=== PATIENT | male | born 1965 | race African-American/Black ===

== ENCOUNTER 2018-10-25 08:33 | Inpatient (IN) | payer BC ==
[2018-10-25 08:51] VITALS: BMI 27.1
--- NOTE | 2018-10-25 10:02 | HP ---
CIWA Score Nausea/Vomitin Muscle Tremors: 2 Anxiety: 2 Agitation: 2 Paroxysmal Sweats: 1-Minimal Palms Moist Orientation: 0-Oriented Tacttile Disturbances: 1-Very Mild Itch/Numbness Auditory Disturbances: 1-Very Mild Visual Disturbances: 0-None Headache: 2-Mild CIWA-Ar Total Score: 13 - Admission Criteria [facility]ASAS Guidelines: Admission for Medically Managed Detox: Requires at least one of the followin. CIWA greater than 12 2. Seizures within the past 24 hours 3. Delirium tremens within the past 24 hours 4. Hallucinations within the past 24 hours 5. Acute intervention needed for co occurring medical disorder 6. Acute intervention needed for co occurring psychiatric disorder 7. Severe withdrawal that cannot be handled at a lower level of care (continued vomiting, continued diarrhea, abnormal vital signs) requiring intravenous medication and/or fluids 8. Admission ROS BHS - HPI Chief Complaint: i need help to stop drinking alcohol and cocaine Allergies/Adverse Reactions: Allergies Allergy/AdvReac Type Severity Reaction Status Date / Time No Known Allergies Allergy Verified 10/25/18 08:45 History of Present Illness: this 53 years old male with alcohol and cocaine dependence,seeking detox, withdrawal symptom, last detox 2008 did not recall facility,not completed nicotine dependence 5 cigarette/day,requested 7 mgs patch plan for rehab after detox longest sobriety 3 years Exam Limitations: No Limitations - Ebola screening Have you traveled outside of the country in the last 21 days: No Have you had contact with anyone from an Ebola affected area: No - Review of Systems Constitutional: Loss of Appetite, Malaise, Night Sweats, Changes in sleep, Weakness EENT: reports: Nose Congestion Respiratory: reports: No Symptoms reported Cardiac: reports: No Symptoms Reported GI: reports: Nausea, Poor Appetite, Poor Fluid Intake : reports: No Symptoms Reported Musculoskeletal: reports: Back Pain, Muscle Pain Integumentary: reports: Dryness Endocrine: reports: No Symptoms Reported Hematology: reports: No Symptoms Reported Psychiatric: reports: No Sypmtoms Reported, Judgement Intact, Mood/Affect Appropiate, Orientated x3 Other Systems: Reviewed and Negative Patient History - Patient Medical History Hx Anemia: No Hx Asthma: No Hx Chronic Obstructive Pulmonary Disease (COPD): No Hx Cancer: No Hx Cardiac Disorders: No Hx Congestive Heart Failure: No Hx Hypertension: No Hx Hypercholesterolemia: No Hx Pacemaker: No HX Cerebrovascular Accident: No Hx Seizures: No Hx Dementia: No Hx Diabetes: No Hx Gastrointestinal Disorders: No Hx Liver Disease: No Hx Genitourinary Disorders: No Hx Sexually Transmitted Disorders: No Hx Renal Disease (ESRD): No Hx Thyroid Disease: No Hx Human Immunodeficiency Virus (HIV): No (last 04/02 negative) Hx Hepatitis C: No Hx Depression: No Hx Suicide Attempt: No Hx Bipolar Disorder: No Hx Schizophrenia: No Other Medical History: no suicidal,no homicidal - Patient Surgical History Past Surgical History: No - PPD History Previous Implant?: Yes Documented Results: Positive w/o proof Implanted On Prior [facility] Admission?: No PPD to be Administered?: No - Smoking Cessation Smoking history: Current every day smoker Have you smoked in the past 12 months: Yes Aproximately how many cigarettes per day: 5 Cigars Per Day: 0 Hx Chewing Tobacco Use: No Initiated information on smoking cessation: Yes 'Breaking Loose' booklet given: 10/25/18 - Substance & Tx. History Hx Alcohol Use: Yes Hx Substance Use: Yes Substance Use Type: Alcohol, Cocaine Hx Substance Use Treatment: Yes (2008 unknown facity not completd) - Substances abused Alcohol Substance route: Oral Frequency: Daily Amount used: 2 pt. vodka Age of first use: 17 Date of last use: 10/25/18 Cocaine Substance route: Smoking Frequency: 3-6 times per week Amount used: 1 gram Age of first use: 18 Date of last use: 10/25/18 Family Disease History - Family Disease History Family Disease History: Other: Father (no contact) Admission Physical Exam BHS - Vital Signs Vital Signs: Vital Signs - 24 hr 10/25/18 08:45 Temperature 98 F Pulse Rate 85 Respiratory 18 Rate Blood Pressure 154/84 - Physical General Appearance: Yes: Moderate Distress, Tremorous, Irritable, Anxious HEENTM: Yes: Normal ENT Inspection, EDUAR, Pharynx Normal Respiratory: Yes: Lungs Clear, Normal Breath Sounds, No Respiratory Distress Neck: Yes: Within Normal Limits, Supple, Trachea in good position Breast: Yes: Within Normal Limits Cardiology: Yes: Within Normal Limits, Regular Rhythm, Regular Rate, S1, S2 Abdominal: Yes: Within Normal Limits, Normal Bowel Sounds, Non Tender, Flat Genitourinary: Yes: Within Normal Limits Back: Yes: Muscle Spasm Musculoskeletal: Yes: full range of Motion, Back pain, Muscle Pain Extremities: Yes: Tremors 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, Fully Oriented, Alert, Motor Strength 5/5 Integumentary: Yes: Dry Lymphatic: Yes: Within Normal Limits - Diagnostic (1) Alcohol dependence with uncomplicated withdrawal Current Visit: Yes Status: Acute (2) Nicotine dependence Current Visit: Yes Status: Acute (3) Cocaine dependence Current Visit: Yes Status: Acute (4) Dehydration Current Visit: Yes Status: Acute Cleared for Admission S - Detox or Rehab [facility] Level of Care: Medically Managed Detox Regimen/Protocol: Librium Breathalyzer - Breathalyzer Breathalyzer: 0.035 Urine Drug Screen - Test Device Lot number: [id number] Expiration date: 06/14/20 - Control Is test valid?: Yes - Results Drug screen NEGATIVE: No Urine drug screen results: [facility]IN-Cocaine Inpatient Rehab Admission - Rehab Decision to Admit Inpatient rehab admission?: No
[2018-10-25] MEDS ORDERED: ACETAMINOPHEN 325 MG TABLET (FP) PO PRN ×2 (10:13)
[2018-10-25] MEDS ORDERED: MAGNESIUM CITRATE 300 ML BOTTLE PO PRN (10:13)
[2018-10-25] MEDS ORDERED: MAGNESIUM HYDROX 2400MG/30ML ORAL SUSPENSION 30 ML CUP PO PRN (10:13)
[2018-10-25] MEDS ORDERED: BISMUTH SUBSALICYLATE 262 MG/15 ML BTL PO PRN (10:13)
[2018-10-25] MEDS ORDERED: IBUPROFEN 400 MG TABLET (FP) PO PRN (10:13)
[2018-10-25] MEDS ORDERED: METHOCARBAMOL 500 MG TABLET PO PRN (10:13)
[2018-10-25] MEDS ORDERED: chlordiazePOXIDE HCL 25 MG CAPSULE PO PRN (10:13)
[2018-10-25] MEDS ORDERED: MENTHOL/PHENOL 1 EACH UD MM PRN (10:13)
[2018-10-25] MEDS ORDERED: MAG HYDROX/AL HYDROX/SIMETH 30 ML UNIT-DOSE CUP PO PRN (10:13)
[2018-10-25] MEDS: NICOTINE 7 MG/24 HOURS TOPICAL PATCH TD SCH (11:49)
--- NOTE | 2018-10-25 13:44 | EKG ---
Test Reason : Blood Pressure : / mmHG Vent. Rate : 074 BPM Atrial Rate : 074 BPM P-R Int : 166 ms QRS Dur : 084 ms QT Int : 394 ms P-R-T Axes : 072 071 072 degrees QTc Int : 437 ms NORMAL SINUS RHYTHM NORMAL ECG NO PREVIOUS ECGS AVAILABLE Confirmed by ALEXANDRE QUESADA, OLY ([id number]) on 10/25/2018 1:44:23 PM Referred By: Confirmed By:OLY SCHROEDER MD
[2018-10-25 14:04] LABS: HEMATOCRIT 43.5 % (35.4-49); HEMOGLOBIN 14.2 GM/dL (11.7-16.9); MCH 27.9 pg (25.7-33.7); MCHC 32.6 g/dl (32.0-35.9); MEAN CELL VOLUME 85.7 fl (80-96); MEAN PLT VOLUME 8.4 fl (7.5-11.1); PLATELET COUNT 305 K/MM3 (134-434); RBC 5.07 M/mm3 (4.00-5.60); RDW 13.6 % (11.9-15.9); WHITE BLOOD COUNT 7.8 K/mm3 (4.0-10.0)
[2018-10-25 14:16] LABS: ALBUMIN 3.7 g/dl (3.4-5.0); ALK PHOS 72 U/L (45-117); ANION GAP 7 MMOL/L (8-16); BILIRUBIN,TOTAL 0.2 mg/dL (0.2-1); BLOOD UREA NITROGEN 15 mg/dL (7-18); CALCIUM 8.6 mg/dL (8.5-10.1); CHLORIDE 107 mmol/L (98-107); CO2 24 mmol/L (21-32); CREATININE 0.9 mg/dL (0.55-1.3); GLUCOSE,RANDOM 91 mg/dL (74-106); POTASSIUM 3.9 mmol/L (3.5-5.1); SGOT/AST 12 U/L (15-37); SGPT/ALT 19 U/L (13-61); SODIUM 138 mmol/L (136-145); TOT PROT 7.2 g/dl (6.4-8.2)
[2018-10-25 14:39] LABS: SICKLE CELL SCREEN NEGATIVE (NEGATIVE)
[2018-10-25] MEDS: chlordiazePOXIDE HCL 25 MG CAPSULE PO SCH ×2 (17:23→22:10)
[2018-10-25] MEDS: THIAMINE HCL 100 MG TABLET (FP) PO SCH (22:10)
[2018-10-25] MEDS: MELATONIN 5 MG TABLETS PO PRN (22:11)
[2018-10-26] MEDS: chlordiazePOXIDE HCL 25 MG CAPSULE PO SCH ×4 (05:35→22:33)
[2018-10-26] MEDS: PRENATAL VITAMINS W/ FOLIC ACID TABLET (FP) PO SCH (10:18)
[2018-10-26] MEDS: NICOTINE 7 MG/24 HOURS TOPICAL PATCH TD SCH (10:18)
[2018-10-26] MEDS ORDERED: PNEUMOC 13-VAL CONJ-DIP CRM/PF 0.5 ML DISP.SYRIN IM ONE (12:00)
--- NOTE | 2018-10-26 14:29 | PN ---
S CIWA - CIWA Score Nausea/Vomitin Muscle Tremors: 3 Anxiety: 2 Agitation: 0-Normal Activity Paroxysmal Sweats: No Perspiration Orientation: 0-Oriented Tacttile Disturbances: 2-Mild Itch/Numbness/Burn Auditory Disturbances: 0-None Visual Disturbances: 1-Very Mild Sensitivity Headache: 3-Moderate CIWA-Ar Total Score: 14 BHS Progress Note (SOAP) Subjective: Anxious, Tremors, Nausea, H/A. Objective: PATIENT A & O X 3, OBSERVED AMBULATING ON UNIT. IN NO ACUTE DISTRESS. 10/26/18 14:27 Vital Signs Temperature 96.8 F L 10/26/18 09:37 Pulse Rate 67 10/26/18 09:37 Respiratory Rate 18 10/26/18 09:37 Blood Pressure 137/91 10/26/18 09:37 O2 Sat by Pulse Oximetry (%) Laboratory Tests 10/25/18 10/25/18 10/25/18 10:30 10:30 10:30 WBC 7.8 RBC 5.07 Hgb 14.2 Hct 43.5 MCV 85.7 MCH 27.9 MCHC 32.6 RDW 13.6 Plt Count 305 MPV 8.4 Sickle Cell Screen Negative Sodium 138 Potassium 3.9 Chloride 107 Carbon Dioxide 24 Anion Gap 7 L BUN 15 Creatinine 0.9 Creat Clearance w eGFR 88.61 Random Glucose 91 Calcium 8.6 Total Bilirubin 0.2 AST 12 L ALT 19 Alkaline Phosphatase 72 Total Protein 7.2 Albumin 3.7 RPR Titer Nonreactive HIV 1&2 Antibody Screen HIV P24 Antigen 10/25/18 10:30 WBC RBC Hgb Hct MCV MCH MCHC RDW Plt Count MPV Sickle Cell Screen Sodium Potassium Chloride Carbon Dioxide Anion Gap BUN Creatinine Creat Clearance w eGFR Random Glucose Calcium Total Bilirubin AST ALT Alkaline Phosphatase Total Protein Albumin RPR Titer HIV 1&2 Antibody Screen Negative HIV P24 Antigen Negative LABS NOTED. Assessment: 10/26/18 14:28 WITHDRAWAL SYMPTOMS. Plan: CONTINUE DETOX.
[2018-10-26] MEDS: THIAMINE HCL 100 MG TABLET (FP) PO SCH (22:33)
[2018-10-26] MEDS: MELATONIN 5 MG TABLETS PO PRN (22:34)
[2018-10-27] MEDS: chlordiazePOXIDE HCL 25 MG CAPSULE PO SCH ×2 (06:40→10:12)
[2018-10-27] MEDS: PRENATAL VITAMINS W/ FOLIC ACID TABLET (FP) PO SCH (10:12)
[2018-10-27] MEDS: NICOTINE 7 MG/24 HOURS TOPICAL PATCH TD SCH (12:03)
--- NOTE | 2018-10-27 14:50 | PN ---
[facility] CIWA - CIWA Score Nausea/Vomitin-No Nausea/No Vomiting Muscle Tremors: 2 Anxiety: 3 Agitation: 2 Paroxysmal Sweats: 1-Minimal Palms Moist Orientation: 0-Oriented Tacttile Disturbances: 0-None Auditory Disturbances: 0-None Visual Disturbances: 0-None Headache: 1-Very Mild CIWA-Ar Total Score: 9 S Progress Note (SOAP) Subjective: mild headache restlessness Objective: 10/27/18 14:50 Vital Signs Temperature 98.5 F 10/27/18 09:36 Pulse Rate 69 10/27/18 09:36 Respiratory Rate 18 10/27/18 09:36 Blood Pressure 154/90 10/27/18 09:36 O2 Sat by Pulse Oximetry (%) Laboratory Last Values WBC 7.8 K/mm3 (4.0-10.0) 10/25/18 10:30 RBC 5.07 M/mm3 (4.00-5.60) 10/25/18 10:30 Hgb 14.2 GM/dL (11.7-16.9) 10/25/18 10:30 Hct 43.5 % (35.4-49) 10/25/18 10:30 MCV 85.7 fl (80-96) 10/25/18 10:30 MCH 27.9 pg (25.7-33.7) 10/25/18 10:30 MCHC 32.6 g/dl (32.0-35.9) 10/25/18 10:30 RDW 13.6 % (11.9-15.9) 10/25/18 10:30 Plt Count 305 K/MM3 (134-434) 10/25/18 10:30 MPV 8.4 fl (7.5-11.1) 10/25/18 10:30 Sickle Cell Screen Negative (NEGATIVE) 10/25/18 10:30 Sodium 138 mmol/L (136-145) 10/25/18 10:30 Potassium 3.9 mmol/L (3.5-5.1) 10/25/18 10:30 Chloride 107 mmol/L (98-107) 10/25/18 10:30 Carbon Dioxide 24 mmol/L (21-32) 10/25/18 10:30 Anion Gap 7 MMOL/L (8-16) L 10/25/18 10:30 BUN 15 mg/dL (7-18) 10/25/18 10:30 Creatinine 0.9 mg/dL (0.55-1.3) 10/25/18 10:30 Creat Clearance w eGFR 88.61 (>60) 10/25/18 10:30 Random Glucose 91 mg/dL (74-106) 10/25/18 10:30 Calcium 8.6 mg/dL (8.5-10.1) 10/25/18 10:30 Total Bilirubin 0.2 mg/dL (0.2-1) 10/25/18 10:30 AST 12 U/L (15-37) L 10/25/18 10:30 ALT 19 U/L (13-61) 10/25/18 10:30 Alkaline Phosphatase 72 U/L (45-117) 10/25/18 10:30 Total Protein 7.2 g/dl (6.4-8.2) 10/25/18 10:30 Albumin 3.7 g/dl (3.4-5.0) 10/25/18 10:30 RPR Titer Nonreactive (NONREACTIVE) 10/25/18 10:30 HIV 1&2 Antibody Screen Negative 10/25/18 10:30 HIV P24 Antigen Negative 10/25/18 10:30 lab noted Assessment: 10/27/18 14:51 withdrawal sx Plan: continue detox
[2018-10-27] MEDS ORDERED: chlordiazePOXIDE HCL 10 MG CAPSULE PO PRN (17:00)
[2018-10-27] MEDS: chlordiazePOXIDE HCL 10 MG CAPSULE PO SCH ×2 (17:26→22:21)
[2018-10-27] MEDS: THIAMINE HCL 100 MG TABLET (FP) PO SCH (22:21)
[2018-10-27] MEDS: MELATONIN 5 MG TABLETS PO PRN (22:22)
[2018-10-27] MEDS: hydrOXYzine PAMOATE 25 MG CAPSULE (FP) PO PRN (22:24)
[2018-10-28] MEDS: chlordiazePOXIDE HCL 10 MG CAPSULE PO SCH ×3 (05:48→18:27)
[2018-10-28] MEDS: PRENATAL VITAMINS W/ FOLIC ACID TABLET (FP) PO SCH (10:20)
[2018-10-28] MEDS: NICOTINE 7 MG/24 HOURS TOPICAL PATCH TD SCH (10:21)
--- NOTE | 2018-10-28 13:32 | PN ---
S CIWA - CIWA Score Nausea/Vomitin-No Nausea/No Vomiting Muscle Tremors: 1-None Visible, but [place] Anxiety: 1-Mildly Anxious Agitation: 1-Slight > Activity Paroxysmal Sweats: 1-Minimal Palms Moist Orientation: 1-Uncertain about Date Tacttile Disturbances: 0-None Auditory Disturbances: 0-None Visual Disturbances: 0-None Headache: 2-Mild CIWA-Ar Total Score: 7 S Progress Note (SOAP) Subjective: drinking alcohol since age 15 having alcohol drinking problem since age 18 lives in [place] "bad" environment "drives" to drink more alcohol patient wants to go to 28 days inpatient rehab or brother 30 years sober [address] [facility] patient wants to go to [place] to see his elderly mother and father after rehab Objective: 10/28/18 13:39 Vital Signs Temperature 98.4 F 10/28/18 13:17 Pulse Rate 80 10/28/18 13:17 Respiratory Rate 18 10/28/18 13:17 Blood Pressure 161/99 10/28/18 13:17 O2 Sat by Pulse Oximetry (%) Laboratory Last Values WBC 7.8 K/mm3 (4.0-10.0) 10/25/18 10:30 RBC 5.07 M/mm3 (4.00-5.60) 10/25/18 10:30 Hgb 14.2 GM/dL (11.7-16.9) 10/25/18 10:30 Hct 43.5 % (35.4-49) 10/25/18 10:30 MCV 85.7 fl (80-96) 10/25/18 10:30 MCH 27.9 pg (25.7-33.7) 10/25/18 10:30 MCHC 32.6 g/dl (32.0-35.9) 10/25/18 10:30 RDW 13.6 % (11.9-15.9) 10/25/18 10:30 Plt Count 305 K/MM3 (134-434) 10/25/18 10:30 MPV 8.4 fl (7.5-11.1) 10/25/18 10:30 Sickle Cell Screen Negative (NEGATIVE) 10/25/18 10:30 Sodium 138 mmol/L (136-145) 10/25/18 10:30 Potassium 3.9 mmol/L (3.5-5.1) 10/25/18 10:30 Chloride 107 mmol/L (98-107) 10/25/18 10:30 Carbon Dioxide 24 mmol/L (21-32) 10/25/18 10:30 Anion Gap 7 MMOL/L (8-16) L 10/25/18 10:30 BUN 15 mg/dL (7-18) 10/25/18 10:30 Creatinine 0.9 mg/dL (0.55-1.3) 10/25/18 10:30 Creat Clearance w eGFR 88.61 (>60) 10/25/18 10:30 Random Glucose 91 mg/dL (74-106) 10/25/18 10:30 Calcium 8.6 mg/dL (8.5-10.1) 10/25/18 10:30 Total Bilirubin 0.2 mg/dL (0.2-1) 10/25/18 10:30 AST 12 U/L (15-37) L 10/25/18 10:30 ALT 19 U/L (13-61) 10/25/18 10:30 Alkaline Phosphatase 72 U/L (45-117) 10/25/18 10:30 Total Protein 7.2 g/dl (6.4-8.2) 10/25/18 10:30 Albumin 3.7 g/dl (3.4-5.0) 10/25/18 10:30 RPR Titer Nonreactive (NONREACTIVE) 10/25/18 10:30 HIV 1&2 Antibody Screen Negative 10/25/18 10:30 HIV P24 Antigen Negative 10/25/18 10:30 lab noted Assessment: 10/28/18 13:40 withdrawal sx Plan: continue detox
[2018-10-28] MEDS: amLODIPine BESYLATE 10 MG TABLET (FP) PO SCH (15:46)
[2018-10-28] MEDS: MELATONIN 5 MG TABLETS PO PRN (22:12)
[2018-10-28] MEDS: hydrOXYzine PAMOATE 25 MG CAPSULE (FP) PO PRN (22:12)
[2018-10-28] MEDS: THIAMINE HCL 100 MG TABLET (FP) PO SCH (22:12)
[2018-10-29] MEDS: chlordiazePOXIDE HCL 10 MG CAPSULE PO SCH (05:07)
[2018-10-29 09:01] VITALS: BP 153/87; PULSE 85; TEMP 96.7
[2018-10-29] MEDS: PRENATAL VITAMINS W/ FOLIC ACID TABLET (FP) PO SCH (10:17)
[2018-10-29] MEDS: amLODIPine BESYLATE 10 MG TABLET (FP) PO SCH (10:17)
[2018-10-29] MEDS: NICOTINE 7 MG/24 HOURS TOPICAL PATCH TD SCH (10:18)
--- NOTE | 2018-10-29 12:44 | DS ---
[facility] Detox Discharge Summary Admission Date: 10/25/18 Discharge Date: 10/29/18 - History Present History: Alcohol Dependence Additional Comments: 53 years old male admitted on 10/25/18 for alcohol withdrawal stabilization completed detox regimen [facility] - Physical Exam Results Vital Signs: Vital Signs Temperature 96.7 F L 10/29/18 09:01 Pulse Rate 85 10/29/18 09:01 Respiratory Rate 18 10/29/18 09:01 Blood Pressure 153/87 10/29/18 09:01 O2 Sat by Pulse Oximetry (%) Pertinent Admission Physical Exam Findings: alcohol withdrawal sx Laboratory Last Values WBC 7.8 K/mm3 (4.0-10.0) 10/25/18 10:30 RBC 5.07 M/mm3 (4.00-5.60) 10/25/18 10:30 Hgb 14.2 GM/dL (11.7-16.9) 10/25/18 10:30 Hct 43.5 % (35.4-49) 10/25/18 10:30 MCV 85.7 fl (80-96) 10/25/18 10:30 MCH 27.9 pg (25.7-33.7) 10/25/18 10:30 MCHC 32.6 g/dl (32.0-35.9) 10/25/18 10:30 RDW 13.6 % (11.9-15.9) 10/25/18 10:30 Plt Count 305 K/MM3 (134-434) 10/25/18 10:30 MPV 8.4 fl (7.5-11.1) 10/25/18 10:30 Sickle Cell Screen Negative (NEGATIVE) 10/25/18 10:30 Sodium 138 mmol/L (136-145) 10/25/18 10:30 Potassium 3.9 mmol/L (3.5-5.1) 10/25/18 10:30 Chloride 107 mmol/L (98-107) 10/25/18 10:30 Carbon Dioxide 24 mmol/L (21-32) 10/25/18 10:30 Anion Gap 7 MMOL/L (8-16) L 10/25/18 10:30 BUN 15 mg/dL (7-18) 10/25/18 10:30 Creatinine 0.9 mg/dL (0.55-1.3) 10/25/18 10:30 Creat Clearance w eGFR 88.61 (>60) 10/25/18 10:30 Random Glucose 91 mg/dL (74-106) 10/25/18 10:30 Calcium 8.6 mg/dL (8.5-10.1) 10/25/18 10:30 Total Bilirubin 0.2 mg/dL (0.2-1) 10/25/18 10:30 AST 12 U/L (15-37) L 10/25/18 10:30 ALT 19 U/L (13-61) 10/25/18 10:30 Alkaline Phosphatase 72 U/L (45-117) 10/25/18 10:30 Total Protein 7.2 g/dl (6.4-8.2) 10/25/18 10:30 Albumin 3.7 g/dl (3.4-5.0) 10/25/18 10:30 RPR Titer Nonreactive (NONREACTIVE) 10/25/18 10:30 HIV 1&2 Antibody Screen Negative 10/25/18 10:30 HIV P24 Antigen Negative 10/25/18 10:30 lab noted - Treatment Hospital Course: Detox Protocol Followed, Detoxed Safely, Responded well, Discharged Condition Good, Rehab Referral Accepted Patient has Accepted a Rehab Referral to: [facility] - Medication Discharge Medications: Ambulatory Orders Amlodipine Besylate 10 mg PO ASDIR 10/28/18 - Diagnosis (1) Alcohol dependence with uncomplicated withdrawal Status: Acute (2) Nicotine dependence Status: Acute Qualifiers: Nicotine product type: cigarettes Substance use status: in withdrawal Qualified Code(s): F17.213 - Nicotine dependence, cigarettes, with withdrawal - AMA Did Patient Leave Against Medical Advice: No
== END 2018-10-29 10:50 | disposition home or self-care (01) | DRG 774 ==
LOC: YASAS 08:33 → Y3N 10:14
PROVIDERS: ADMIT Surgery; ATTEND Surgery
PROC: HZ2ZZZZ Detoxification Services for Substance Abuse Treatment (ICD-10-PCS; principal; 2018-10-25)
DX: F10.230 Alcohol dependence with withdrawal, uncomplicated (principal); F14.20 Cocaine dependence, uncomplicated; F17.213 Nicotine dependence, cigarettes, with withdrawal; E86.0 Dehydration
CPT/HCPCS: 36415; 71046-TC-FY; 80053; 85027; 85660; 86593; 87389; 93005; 93010

== ENCOUNTER 2022-03-30 18:56 | Inpatient (IN) | payer OTHER ==
[2022-03-30 19:24] VITALS: BMI 27.4
[2022-03-30] MEDS ORDERED: MAG HYDROX/AL HYDROX/SIMETH 30 ML UNIT-DOSE CUP PO PRN (21:59)
[2022-03-30] MEDS ORDERED: IBUPROFEN 400 MG TABLET (FP) PO PRN (21:59)
[2022-03-30] MEDS ORDERED: BISMUTH SUBSALICYLATE 524 MG/30 ML PO PRN (21:59)
[2022-03-30] MEDS ORDERED: DICYCLOMINE HCL 10 MG CAPSULE PO PRN (21:59)
[2022-03-30] MEDS ORDERED: BENZOCAINE/MENTHOL (CHLORASEPTIC ) LOZENGE MM PRN (21:59)
[2022-03-30] MEDS ORDERED: MAGNESIUM HYDROX 2400MG/30ML ORAL SUSPENSION 30 ML CUP PO PRN (21:59)
[2022-03-30] MEDS ORDERED: ACETAMINOPHEN 325 MG TABLET (FP) PO PRN ×2 (21:59)
[2022-03-30] MEDS ORDERED: IBUPROFEN 600 MG TABLET (FP) PO PRN (21:59)
[2022-03-30] MEDS ORDERED: MAGNESIUM CITRATE 300 ML BOTTLE PO PRN (21:59)
[2022-03-30] MEDS ORDERED: ONDANSETRON *ODT* 4 MG TABLET SL PRN (21:59)
[2022-03-30] MEDS ORDERED: LOPERAMIDE HCL 2 MG CAPSULE PO PRN (21:59)
[2022-03-30] MEDS ORDERED: chlordiazePOXIDE HCL 25 MG CAPSULE PO PRN (22:03)
[2022-03-30] MEDS: MELATONIN 5 MG TABLETS PO SCH (23:18)
[2022-03-30] MEDS: THIAMINE HCL 100 MG TABLET (FP) PO SCH (23:18)
[2022-03-30] MEDS: chlordiazePOXIDE HCL 25 MG CAPSULE PO SCH (23:18)
[2022-03-31] MEDS: chlordiazePOXIDE HCL 25 MG CAPSULE PO SCH ×4 (06:03→22:34)
[2022-03-31] MEDS: PRENATAL VITAMINS W/ FOLIC ACID TABLET (FP) PO SCH (10:19)
[2022-03-31] MEDS: NICOTINE 14 MG/24 HOURS TOPICAL PATCH TD SCH (10:19)
[2022-03-31 10:47] LABS: HEMATOCRIT 43.2 % (35.4-49); HEMOGLOBIN 14.3 GM/dL (11.7-16.9); MCH 28.2 pg (25.7-33.7); MCHC 33.2 g/dl (32.0-35.9); MEAN CELL VOLUME 85.1 fl (80-96); MEAN PLT VOLUME 8.7 fl (7.5-11.1); PLATELET COUNT 238 10^3/uL (134-434); RBC 5.07 M/mm3 (4.00-5.60); RDW 13.8 % (11.9-15.9); WHITE BLOOD COUNT 6.4 K/mm3 (4.0-10.0)
[2022-03-31 10:53] LABS: CALCIUM 8.5 mg/dL (8.5-10.1)
[2022-03-31 10:54] LABS: BLOOD UREA NITROGEN 13.8 mg/dL (7-18)
[2022-03-31 10:58] LABS: BILIRUBIN,TOTAL 0.4 mg/dL (0.2-1); CREATININE 0.9 mg/dL (0.55-1.3); TOT PROT 6.1 g/dl (6.4-8.2)
[2022-03-31] MEDS: THIAMINE HCL 100 MG TABLET (FP) PO SCH (22:34)
[2022-03-31] MEDS: METHOCARBAMOL 500 MG TABLET PO PRN (22:34)
[2022-03-31] MEDS: MELATONIN 5 MG TABLETS PO SCH (22:34)
[2022-04-01] MEDS: chlordiazePOXIDE HCL 25 MG CAPSULE PO SCH ×4 (06:39→22:13)
[2022-04-01] MEDS: NICOTINE 14 MG/24 HOURS TOPICAL PATCH TD SCH (10:53)
[2022-04-01] MEDS: PRENATAL VITAMINS W/ FOLIC ACID TABLET (FP) PO SCH (10:53)
[2022-04-01] MEDS: THIAMINE HCL 100 MG TABLET (FP) PO SCH (22:12)
[2022-04-01] MEDS: METHOCARBAMOL 500 MG TABLET PO PRN (22:12)
[2022-04-01] MEDS: MELATONIN 5 MG TABLETS PO SCH (22:12)
[2022-04-02] MEDS ORDERED: chlordiazePOXIDE HCL 10 MG CAPSULE PO PRN
[2022-04-02] MEDS: chlordiazePOXIDE HCL 10 MG CAPSULE PO SCH ×4 (05:24→22:22)
[2022-04-02] MEDS: PRENATAL VITAMINS W/ FOLIC ACID TABLET (FP) PO SCH (10:12)
[2022-04-02] MEDS: NICOTINE 14 MG/24 HOURS TOPICAL PATCH TD SCH (10:13)
[2022-04-02] MEDS: METHOCARBAMOL 500 MG TABLET PO PRN (10:15)
[2022-04-02] MEDS: amLODIPine BESYLATE 10 MG TABLET (FP) PO SCH (13:27)
[2022-04-02] MEDS: THIAMINE HCL 100 MG TABLET (FP) PO SCH (22:22)
[2022-04-02] MEDS: MELATONIN 5 MG TABLETS PO SCH (22:23)
[2022-04-03] MEDS: chlordiazePOXIDE HCL 10 MG CAPSULE PO SCH ×2 (05:40→18:05)
[2022-04-03] MEDS: PRENATAL VITAMINS W/ FOLIC ACID TABLET (FP) PO SCH (10:07)
[2022-04-03] MEDS: METHOCARBAMOL 500 MG TABLET PO PRN ×2 (10:07→22:22)
[2022-04-03] MEDS: amLODIPine BESYLATE 10 MG TABLET (FP) PO SCH (10:07)
[2022-04-03] MEDS: NICOTINE 14 MG/24 HOURS TOPICAL PATCH TD SCH (10:09)
[2022-04-03] MEDS: MELATONIN 5 MG TABLETS PO SCH (22:21)
[2022-04-03] MEDS: THIAMINE HCL 100 MG TABLET (FP) PO SCH (22:21)
[2022-04-04] MEDS ORDERED: chlordiazePOXIDE HCL 10 MG CAPSULE PO ONE (05:00)
[2022-04-04 09:12] VITALS: BP 163/100; PULSE 75; RESP 17; TEMP 98
[2022-04-04] MEDS: NICOTINE 14 MG/24 HOURS TOPICAL PATCH TD SCH (10:06)
[2022-04-04] MEDS: PRENATAL VITAMINS W/ FOLIC ACID TABLET (FP) PO SCH (10:06)
[2022-04-04] MEDS: amLODIPine BESYLATE 10 MG TABLET (FP) PO SCH (10:06)
== END 2022-04-04 10:50 | disposition home or self-care (01) | DRG 774 ==
LOC: YASAS 18:56 → Y6N 22:04
PROVIDERS: ADMIT Allergy & Immunology; ATTEND Surgery
PROC: HZ2ZZZZ Detoxification Services for Substance Abuse Treatment (ICD-10-PCS; principal; 2022-03-30)
DX: F10.230 Alcohol dependence with withdrawal, uncomplicated (principal); F14.20 Cocaine dependence, uncomplicated; F17.210 Nicotine dependence, cigarettes, uncomplicated; F31.9 Bipolar disorder, unspecified; F41.9 Anxiety disorder, unspecified; I10 Essential (primary) hypertension; M17.11 Unilateral primary osteoarthritis, right knee; Z86.59 Personal history of other mental and behavioral disorders; Z99.89 Dependence on other enabling machines and devices
CPT/HCPCS: 36415; 71046-TC-FY; 80053; 85027; 86780; 93005; 93010; C9803-CS; U0003; U0005

== ENCOUNTER 2022-05-17 14:23 | Inpatient (IN) | payer OTHER ==
[2022-05-17 15:07] VITALS: BMI 26.4
[2022-05-17] MEDS ORDERED: ONDANSETRON *ODT* 4 MG TABLET SL PRN (16:33)
[2022-05-17] MEDS ORDERED: METHOCARBAMOL 500 MG TABLET PO PRN (16:33)
[2022-05-17] MEDS ORDERED: ACETAMINOPHEN 325 MG TABLET (FP) PO PRN ×2 (16:33)
[2022-05-17] MEDS ORDERED: MAGNESIUM CITRATE 300 ML BOTTLE PO PRN (16:33)
[2022-05-17] MEDS ORDERED: DICYCLOMINE HCL 10 MG CAPSULE PO PRN (16:33)
[2022-05-17] MEDS ORDERED: NALOXONE HCL (KLOXXADO) 8 MG SPRAY NS PRN (16:33)
[2022-05-17] MEDS ORDERED: MAG HYDROX/AL HYDROX/SIMETH 30 ML UNIT-DOSE CUP PO PRN (16:33)
[2022-05-17] MEDS ORDERED: IBUPROFEN 600 MG TABLET (FP) PO PRN (16:33)
[2022-05-17] MEDS ORDERED: BENZOCAINE/MENTHOL (CHLORASEPTIC ) LOZENGE MM PRN (16:33)
[2022-05-17] MEDS ORDERED: MAGNESIUM HYDROX 2400MG/30ML ORAL SUSPENSION 30 ML CUP PO PRN (16:33)
[2022-05-17] MEDS ORDERED: NICOTINE 10 MG CARTRIDGE (INHALER) IH PRN (16:33)
[2022-05-17] MEDS ORDERED: LOPERAMIDE HCL 2 MG CAPSULE PO PRN (16:33)
[2022-05-17] MEDS ORDERED: BISMUTH SUBSALICYLATE 524 MG/30 ML PO PRN (16:33)
[2022-05-17] MEDS ORDERED: IBUPROFEN 400 MG TABLET (FP) PO PRN (16:33)
[2022-05-17] MEDS: NICOTINE 7 MG/24 HOURS TOPICAL PATCH TD SCH (17:42)
[2022-05-17] MEDS: PRENATAL VITAMINS W/ FOLIC ACID TABLET (FP) PO SCH (17:43)
[2022-05-17] MEDS: hydrOXYzine PAMOATE 25 MG CAPSULE (FP) PO PRN (17:43)
[2022-05-17] MEDS: MELATONIN 5 MG TABLETS PO SCH (22:21)
[2022-05-17] MEDS: THIAMINE HCL 100 MG TABLET (FP) PO SCH (22:22)
[2022-05-18] MEDS: PRENATAL VITAMINS W/ FOLIC ACID TABLET (FP) PO SCH (10:11)
[2022-05-18] MEDS: NICOTINE 7 MG/24 HOURS TOPICAL PATCH TD SCH (10:11)
[2022-05-18 11:12] LABS: HEMATOCRIT 42.6 % (35.4-49); HEMOGLOBIN 14.4 GM/dL (11.7-16.9); MCH 28.7 pg (25.7-33.7); MCHC 33.7 g/dl (32.0-35.9); MEAN PLT VOLUME 8.2 fl (7.5-11.1); PLATELET COUNT 281 10^3/uL (134-434); RBC 5.01 M/mm3 (4.00-5.60); RDW 13.7 % (11.9-15.9); WHITE BLOOD COUNT 5.4 K/mm3 (4.0-10.0)
[2022-05-18 11:18] LABS: ALBUMIN 3.2 g/dl (3.4-5.0); BLOOD UREA NITROGEN 11.3 mg/dL (7-18); CALCIUM 8.7 mg/dL (8.5-10.1)
[2022-05-18 11:22] LABS: CREATININE 0.8 mg/dL (0.55-1.3); TOT PROT 6.5 g/dl (6.4-8.2)
[2022-05-18 11:24] LABS: BILIRUBIN,TOTAL 0.2 mg/dL (0.2-1)
[2022-05-18] MEDS ORDERED: cloNIDine HCL 0.1 MG TABLET PO ONE (21:29)
[2022-05-18] MEDS: MELATONIN 5 MG TABLETS PO SCH (23:01)
[2022-05-18] MEDS: THIAMINE HCL 100 MG TABLET (FP) PO SCH (23:01)
[2022-05-18] MEDS: hydrOXYzine PAMOATE 25 MG CAPSULE (FP) PO PRN (23:03)
[2022-05-19 09:03] VITALS: BP 102/57; PULSE 71; RESP 18; TEMP 96.7
== END 2022-05-19 10:15 | disposition home or self-care (01) | DRG 774 ==
LOC: YASAS 14:23 → UNDOADMIN 17:05 → Y6N 17:05
PROVIDERS: ADMIT Allergy & Immunology; ATTEND Surgery
PROC: HZ2ZZZZ Detoxification Services for Substance Abuse Treatment (ICD-10-PCS; principal; 2022-05-17)
DX: F10.230 Alcohol dependence with withdrawal, uncomplicated (principal); F14.20 Cocaine dependence, uncomplicated; F17.210 Nicotine dependence, cigarettes, uncomplicated; F31.9 Bipolar disorder, unspecified; F41.9 Anxiety disorder, unspecified; Z86.11 Personal history of tuberculosis
CPT/HCPCS: 36415; 80053; 85027; 86780; C9803-CS; U0003; U0005

== ENCOUNTER 2023-03-01 14:40 | Inpatient (IN) | payer OTHER ==
[2023-03-01 15:59] VITALS: BMI 25.7
[2023-03-01] MEDS ORDERED: POLYETHYLENE GLYCOL (HEALTHYLAX) 3350 17 GM PACKET PO PRN (16:31)
[2023-03-01] MEDS ORDERED: COLLOIDAL OATMEAL 1 BAR EACH TP PRN (16:31)
[2023-03-01] MEDS ORDERED: MAG HYDROX/AL HYDROX/SIMETH 30 ML UNIT-DOSE CUP PO PRN (16:31)
[2023-03-01] MEDS ORDERED: NALOXONE HCL (KLOXXADO) 8 MG SPRAY NS PRN (16:31)
[2023-03-01] MEDS ORDERED: NALOXONE HCL 0.4 MG/ML VIAL IM PRN (16:31)
[2023-03-01] MEDS ORDERED: guaiFENesin 600 MG TABLET.ER (FP) PO PRN (16:31)
[2023-03-01] MEDS ORDERED: MAGNESIUM HYDROX 2400MG/30ML ORAL SUSPENSION 30 ML CUP PO PRN (16:31)
[2023-03-01] MEDS ORDERED: ACETAMINOPHEN 325 MG TABLET (FP) PO PRN (16:31)
[2023-03-01] MEDS ORDERED: IBUPROFEN 600 MG TABLET (FP) PO PRN (16:31)
[2023-03-01] MEDS ORDERED: BENZOCAINE/MENTHOL (CHLORASEPTIC ) LOZENGE MM PRN (16:31)
[2023-03-01] MEDS ORDERED: IBUPROFEN 400 MG TABLET (FP) PO PRN (16:31)
[2023-03-01] MEDS ORDERED: LOPERAMIDE HCL 2 MG CAPSULE PO PRN (16:31)
[2023-03-01] MEDS ORDERED: hydrOXYzine PAMOATE 25 MG CAPSULE (FP) PO PRN (16:31)
[2023-03-01] MEDS ORDERED: BENZONATATE 200 MG CAPSULE PO PRN (16:31)
[2023-03-01] MEDS ORDERED: AMMONIUM LACTATE 12% LOTION 225 GM BOTTLE TP PRN (16:31)
[2023-03-01] MEDS: PRENATAL VITAMINS W/ FOLIC ACID TABLET (FP) PO SCH (18:44)
[2023-03-01] MEDS: THIAMINE HCL 100 MG TABLET (FP) PO SCH (21:14)
[2023-03-01] MEDS: MELATONIN 5 MG TABLETS PO SCH (21:14)
[2023-03-02] MEDS: PRENATAL VITAMINS W/ FOLIC ACID TABLET (FP) PO SCH (09:57)
[2023-03-02] MEDS: NICOTINE 7 MG/24 HOURS TOPICAL PATCH TD SCH (09:57)
[2023-03-02 15:19] LABS: HEMOGLOBIN 14.4 GM/dL (11.7-16.9); MCH 28.2 pg (25.7-33.7); MCHC 33.5 g/dl (32.0-35.9); MEAN CELL VOLUME 84.3 fl (80-96); MEAN PLT VOLUME 8.9 fl (7.5-11.1); PLATELET COUNT 284 10^3/uL (134-434); RDW 13.8 % (11.9-15.9); URINE APPEARANCE CLEAR; URINE BILIRUBIN NEGATIVE (NEGATIVE); URINE COLOR YELLOW; URINE GLUCOSE (UA) NEGATIVE (NEGATIVE); URINE KETONE TRACE (NEGATIVE); URINE LEUK ESTERASE NEGATIVE (NEGATIVE); URINE NITRITE NEGATIVE (NEGATIVE); URINE PROTEIN NEGATIVE (NEGATIVE); URINE UROBILINOGEN 0.2 mg/dL (0.2-1.0); WHITE BLOOD COUNT 5.9 K/mm3 (4.0-10.0)
[2023-03-02 15:21] LABS: POTASSIUM 4.5 mmol/L (3.5-5.1)
[2023-03-02 15:30] LABS: ALBUMIN 3.2 g/dl (3.4-5.0); BLOOD UREA NITROGEN 12.2 mg/dL (7-18)
[2023-03-02 15:33] LABS: CREATININE 0.9 mg/dL (0.55-1.3)
[2023-03-02 15:34] LABS: TOT PROT 6.7 g/dl (6.4-8.2)
[2023-03-02 15:35] LABS: BILIRUBIN,TOTAL 0.2 mg/dL (0.2-1)
[2023-03-02 18:10] LABS: SYPHILIS W/ RPR CONF NON-REACTIVE (NONREACTIVE)
[2023-03-02] MEDS: MELATONIN 5 MG TABLETS PO SCH (21:04)
[2023-03-02] MEDS: THIAMINE HCL 100 MG TABLET (FP) PO SCH (21:04)
[2023-03-02] MEDS: DIVALPROEX SODIUM 500 MG TABLET E.C. PO SCH (21:05)
[2023-03-02] MEDS: GABAPENTIN 100 MG CAPSULE PO SCH (21:05)
[2023-03-02] MEDS: QUEtiapine FUMARATE 200 MG TABLET PO SCH (21:06)
[2023-03-03] MEDS: PRENATAL VITAMINS W/ FOLIC ACID TABLET (FP) PO SCH (09:26)
[2023-03-03] MEDS: NICOTINE 7 MG/24 HOURS TOPICAL PATCH TD SCH (09:26)
[2023-03-03] MEDS: DIVALPROEX SODIUM 500 MG TABLET E.C. PO SCH (21:12)
[2023-03-03] MEDS: MELATONIN 5 MG TABLETS PO SCH (21:12)
[2023-03-03] MEDS: THIAMINE HCL 100 MG TABLET (FP) PO SCH (21:12)
[2023-03-03] MEDS: QUEtiapine FUMARATE 200 MG TABLET PO SCH (21:12)
[2023-03-03] MEDS: GABAPENTIN 100 MG CAPSULE PO SCH (21:12)
[2023-03-04] MEDS: NICOTINE 7 MG/24 HOURS TOPICAL PATCH TD SCH (09:50)
[2023-03-04] MEDS: PRENATAL VITAMINS W/ FOLIC ACID TABLET (FP) PO SCH (09:50)
[2023-03-04] MEDS: MELATONIN 5 MG TABLETS PO SCH (21:01)
[2023-03-04] MEDS: QUEtiapine FUMARATE 200 MG TABLET PO SCH (21:01)
[2023-03-04] MEDS: DIVALPROEX SODIUM 500 MG TABLET E.C. PO SCH (21:01)
[2023-03-04] MEDS: THIAMINE HCL 100 MG TABLET (FP) PO SCH (21:01)
[2023-03-04] MEDS: GABAPENTIN 100 MG CAPSULE PO SCH (21:02)
[2023-03-05] MEDS: PRENATAL VITAMINS W/ FOLIC ACID TABLET (FP) PO SCH (10:11)
[2023-03-05] MEDS: NICOTINE 7 MG/24 HOURS TOPICAL PATCH TD SCH (10:11)
[2023-03-05] MEDS: QUEtiapine FUMARATE 200 MG TABLET PO SCH (21:04)
[2023-03-05] MEDS: GABAPENTIN 100 MG CAPSULE PO SCH (21:04)
[2023-03-05] MEDS: DIVALPROEX SODIUM 500 MG TABLET E.C. PO SCH (21:04)
[2023-03-05] MEDS: THIAMINE HCL 100 MG TABLET (FP) PO SCH (21:05)
[2023-03-05] MEDS: MELATONIN 5 MG TABLETS PO SCH (21:05)
[2023-03-06] MEDS: NICOTINE 7 MG/24 HOURS TOPICAL PATCH TD SCH (11:53)
[2023-03-06] MEDS: PRENATAL VITAMINS W/ FOLIC ACID TABLET (FP) PO SCH (11:53)
[2023-03-06] MEDS: GABAPENTIN 100 MG CAPSULE PO SCH (21:22)
[2023-03-06] MEDS: MELATONIN 5 MG TABLETS PO SCH (21:22)
[2023-03-06] MEDS: THIAMINE HCL 100 MG TABLET (FP) PO SCH (21:22)
[2023-03-06] MEDS: QUEtiapine FUMARATE 200 MG TABLET PO SCH (21:22)
[2023-03-06] MEDS: DIVALPROEX SODIUM 500 MG TABLET E.C. PO SCH (21:22)
[2023-03-07] MEDS ORDERED: NICOTINE POLACRILEX 4 MG GUM BUC PRN (09:19)
[2023-03-07] MEDS: NICOTINE 7 MG/24 HOURS TOPICAL PATCH TD SCH (10:12)
[2023-03-07] MEDS: PRENATAL VITAMINS W/ FOLIC ACID TABLET (FP) PO SCH (10:12)
[2023-03-07] MEDS: MELATONIN 5 MG TABLETS PO SCH (21:03)
[2023-03-07] MEDS: DIVALPROEX SODIUM 500 MG TABLET E.C. PO SCH (21:03)
[2023-03-07] MEDS: QUEtiapine FUMARATE 200 MG TABLET PO SCH (21:03)
[2023-03-07] MEDS: THIAMINE HCL 100 MG TABLET (FP) PO SCH (21:03)
[2023-03-07] MEDS: GABAPENTIN 100 MG CAPSULE PO SCH (21:03)
[2023-03-08] MEDS: NICOTINE 7 MG/24 HOURS TOPICAL PATCH TD SCH (09:59)
[2023-03-08] MEDS: PRENATAL VITAMINS W/ FOLIC ACID TABLET (FP) PO SCH (09:59)
[2023-03-08] MEDS ORDERED: PRENATAL VITAMINS W/ FOLIC ACID TABLET (FP) PO PRN (13:14)
[2023-03-08] MEDS ORDERED: NICOTINE 7 MG/24 HOURS TOPICAL PATCH TD PRN (13:14)
[2023-03-08] MEDS: QUEtiapine FUMARATE 200 MG TABLET PO SCH (21:01)
[2023-03-08] MEDS: THIAMINE HCL 100 MG TABLET (FP) PO SCH (21:01)
[2023-03-08] MEDS: MELATONIN 5 MG TABLETS PO SCH (21:01)
[2023-03-08] MEDS: GABAPENTIN 100 MG CAPSULE PO SCH (21:01)
[2023-03-08] MEDS: DIVALPROEX SODIUM 500 MG TABLET E.C. PO SCH (21:01)
[2023-03-09] MEDS: DIVALPROEX SODIUM 500 MG TABLET E.C. PO SCH (21:13)
[2023-03-09] MEDS: QUEtiapine FUMARATE 200 MG TABLET PO SCH (21:13)
[2023-03-09] MEDS: THIAMINE HCL 100 MG TABLET (FP) PO SCH (21:13)
[2023-03-09] MEDS: MELATONIN 5 MG TABLETS PO SCH (21:13)
[2023-03-09] MEDS: GABAPENTIN 100 MG CAPSULE PO SCH (21:13)
[2023-03-10] MEDS: GABAPENTIN 100 MG CAPSULE PO SCH (21:36)
[2023-03-10] MEDS: MELATONIN 5 MG TABLETS PO SCH (21:36)
[2023-03-10] MEDS: DIVALPROEX SODIUM 500 MG TABLET E.C. PO SCH (21:36)
[2023-03-10] MEDS: THIAMINE HCL 100 MG TABLET (FP) PO SCH (21:36)
[2023-03-10] MEDS: QUEtiapine FUMARATE 200 MG TABLET PO SCH (21:36)
[2023-03-11] MEDS: MELATONIN 5 MG TABLETS PO SCH (21:14)
[2023-03-11] MEDS: GABAPENTIN 100 MG CAPSULE PO SCH (21:14)
[2023-03-11] MEDS: DIVALPROEX SODIUM 500 MG TABLET E.C. PO SCH (21:14)
[2023-03-11] MEDS: QUEtiapine FUMARATE 200 MG TABLET PO SCH (21:14)
[2023-03-11] MEDS: THIAMINE HCL 100 MG TABLET (FP) PO SCH (21:15)
[2023-03-12] MEDS: DIVALPROEX SODIUM 500 MG TABLET E.C. PO SCH (21:27)
[2023-03-12] MEDS: MELATONIN 5 MG TABLETS PO SCH (21:27)
[2023-03-12] MEDS: QUEtiapine FUMARATE 200 MG TABLET PO SCH (21:27)
[2023-03-12] MEDS: THIAMINE HCL 100 MG TABLET (FP) PO SCH (21:27)
[2023-03-12] MEDS: GABAPENTIN 100 MG CAPSULE PO SCH (21:28)
[2023-03-13] MEDS: MELATONIN 5 MG TABLETS PO SCH (21:08)
[2023-03-13] MEDS: GABAPENTIN 100 MG CAPSULE PO SCH (21:08)
[2023-03-13] MEDS: THIAMINE HCL 100 MG TABLET (FP) PO SCH (21:08)
[2023-03-13] MEDS: QUEtiapine FUMARATE 200 MG TABLET PO SCH (21:08)
[2023-03-13] MEDS: DIVALPROEX SODIUM 500 MG TABLET E.C. PO SCH (21:08)
[2023-03-14 07:32] VITALS: RESP 16
[2023-03-14] MEDS: MELATONIN 5 MG TABLETS PO SCH (21:22)
[2023-03-14] MEDS: DIVALPROEX SODIUM 500 MG TABLET E.C. PO SCH (21:22)
[2023-03-14] MEDS: QUEtiapine FUMARATE 200 MG TABLET PO SCH (21:22)
[2023-03-14] MEDS: THIAMINE HCL 100 MG TABLET (FP) PO SCH (21:22)
[2023-03-14] MEDS: GABAPENTIN 100 MG CAPSULE PO SCH (21:22)
[2023-03-15] MEDS: QUEtiapine FUMARATE 200 MG TABLET PO SCH (21:36)
[2023-03-15] MEDS: MELATONIN 5 MG TABLETS PO SCH (21:36)
[2023-03-15] MEDS: GABAPENTIN 100 MG CAPSULE PO SCH (21:36)
[2023-03-15] MEDS: DIVALPROEX SODIUM 500 MG TABLET E.C. PO SCH (21:36)
[2023-03-15] MEDS: THIAMINE HCL 100 MG TABLET (FP) PO SCH (21:36)
[2023-03-16 07:12] VITALS: BP 137/88; PULSE 86; TEMP 97.8
== END 2023-03-16 09:56 | disposition home or self-care (01) | DRG 772 ==
LOC: YASAS 14:40 → Y3W 16:45
PROVIDERS: ADMIT Allergy & Immunology; ATTEND Psychiatry & Neurology Pain Medicine
PROC: HZ42ZZZ Group Counseling for Substance Abuse Treatment, Cognitive-Behavioral (ICD-10-PCS; principal; 2023-03-01)
DX: F10.20 Alcohol dependence, uncomplicated (principal); F14.20 Cocaine dependence, uncomplicated; F17.210 Nicotine dependence, cigarettes, uncomplicated; F31.9 Bipolar disorder, unspecified; Z86.11 Personal history of tuberculosis
CPT/HCPCS: 36415; 80053; 80164; 81003; 85027; 86780; 86803; 87635; 87811